=== PATIENT | female | born 1945 | race African-American/Black ===

== ENCOUNTER → 2016-12-24 | Day surgery (SDC) | payer MEDICARE, OTHER | LOC: RAD 12:23 | PROVIDERS: ATTEND Orthopaedic Surgery Adult Reconstructive Orthopaedic Surgery | PROC: 3E0U33Z Introduction of Anti-inflammatory into Joints, Percutaneous Approach (ICD-10-PCS; principal; 2016-12-24) | DX: M25.551 Pain in right hip (principal); Z96.641 Presence of right artificial hip joint; L02.91 Cutaneous abscess, unspecified | CPT/HCPCS: 20610; 36415; 73501; 77002; 85652; 86140; 87070; 87075; 87077; 87186; 87205 ==

== ENCOUNTER → 2016-12-24 | Outpatient (CLI) | payer MEDICARE, OTHER | LOC: OD 13:56 | PROVIDERS: ATTEND Orthopaedic Surgery Adult Reconstructive Orthopaedic Surgery | DX: L02.91 Cutaneous abscess, unspecified (principal); M25.551 Pain in right hip; Z96.641 Presence of right artificial hip joint | CPT/HCPCS: 36415; 85652; 86140 ==

== ENCOUNTER → 2017-08-27 | Outpatient (CLI) | payer MEDICARE, OTHER ==
[2017-08-27 12:02] LABS: ABSOLUTE BASOPHILS # (AUTO) 0.1 10^3/uL (0.0-0.2); ABSOLUTE EOSINOPHILS # (AUTO) 0.2 10^3/uL (0.0-0.6); ABSOLUTE LYMPHOCYTES (AUTO) 2.5 10^3/uL (0.5-4.7); ABSOLUTE MONOCYTES (AUTO) 0.5 10^3/uL (0.1-1.4); ABSOLUTE NEUT (AUTO) 4.2 10^3/uL (1.7-8.2); BASOPHILS % (AUTO) 1.1 % (0-2); EOSINOPHILS % (AUTO) 2.7 % (0-6); HEMATOCRIT 30.1 % (36.0-47.0); HEMOGLOBIN 9.6 g/dL (12.0-15.5); HGB HCT DIFFERENCE -1.3; LYMPHOCYTES % (AUTO) 33.7 % (13-45); MEAN CORPUSCULAR HEMOGLOBIN 27.2 pg (27.0-33.4); MEAN CORPUSCULAR HGB CONC 31.8 g/dL (32.0-36.0); MEAN CORPUSCULAR VOLUME 85 fl (80-97); MONOCYTES % (AUTO) 6.2 % (3-13); RED BLOOD COUNT 3.52 10^6/uL (3.72-5.28); SEGMENTED NEUTROPHILS % (AUTO) 56.3 % (42-78); WHITE BLOOD COUNT 7.4 10^3/uL (4.0-10.5)
[2017-08-27 12:46] LABS: ERYTHROCYTE SEDIMENTATION RATE 94 mm/hr (0-30)
== END ==
LOC: OD 10:49
PROVIDERS: ATTEND Physician Assistant
DX: M25.551 Pain in right hip (principal)
CPT/HCPCS: 36415; 85025; 85652; 86140

== ENCOUNTER → 2017-09-03 | Outpatient (CLI) | payer MEDICARE, OTHER ==
--- NOTE | 2017-09-03 15:44 | RADIOLOGY REPORT (SQ) ---
EXAM DESCRIPTION: NM 3 PHASE BONE SCAN COMPLETED DATE/TIME: 09/03/2017 2:59 pm REASON FOR STUDY: PRIMARY OA RIGHT HIP (M16.11) M16.11 UNILATERAL PRIMARY OSTEOARTHRITIS, RIGHT HIP COMPARISON: Outside x-rays dated 08/20/2017. RADIONUCLIDE AND DOSE: 21.9 millicuries Tc99m MDP. The route of agent administration: Intravenous. ADDITIONAL DRUGS AND DOSES: None. TECHNIQUE: Following injection of the radiopharmaceutical, serial blood flow images acquired. Equil ibrium blood pool images then acquired. Routine delayed images at 3 hour acquired of the areas of cl inical concern with additional focused images as needed. AREA OF INTEREST: Pelvis and hips. Attention right hip. LIMITATIONS: None. FINDINGS: VASCULAR FLOW IMAGES: No asymmetry or focal areas of hyperemia. BLOOD POOL IMAGES: No asymmetry or focal areas of soft-tissue hyper-perfusion. 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 Prominent activity in the trochanteric paulo on of the right hip as well as the right acetabulum. KIDNEYS: Kidneys not imaged. OTHER: No other significant finding. IMPRESSION: BILATERAL HIP PROSTHESES. PROMINENT ABNORMAL INCREASED ACTIVITY RELATED TO THE RIGHT HI P IN THE INTERTROCHANTERIC REGION AND ACETABULUM. THIS IS NONSPECIFIC AND MAY BE DUE TO LOOSENING OF THE PROSTHESIS. INFECTION IS ANOTHER POSSIBILITY. COMMENT: Quality measure 147: Current bone scan is compared with any available plain radiographs, p rior bone scans, and CT/MRI. TECHNICAL DOCUMENTATION: JOB ID: [id number] [employer]- All Rights Reserved
== END ==
LOC: RAD 10:58
PROVIDERS: ATTEND Physician Assistant
DX: M16.11 Unilateral primary osteoarthritis, right hip (principal); Z96.643 Presence of artificial hip joint, bilateral
CPT/HCPCS: 78315; A9561; Q9969

== ENCOUNTER → 2017-09-04 | Day surgery (SDC) | payer MEDICARE, OTHER ==
[2017-09-04 10:56] LABS: FLUID TYPE SYNOVIAL
[2017-09-04 10:57] LABS: FLUID APPEARANCE TURBID; FLUID RBC AVERAGE 179.5; FLUID RBC DILUENT USED SALINE; FLUID RBC DILUTION FACTOR 51; FLUID RBC SIDE 1 197; FLUID RBC SIDE 2 162; TOTAL RBC SQUARES COUNTED FLD 5
--- NOTE | 2017-09-04 11:25 | RADIOLOGY REPORT (SQ) ---
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 FLUOROSCOPY TIME: 14 seconds. 1 images saved to PACS. LIMITATIONS: None. PROCEDURE: SITE OF ASPIRATION: Right hip. Using local anesthesia and sterile technique with fluoroscopic guidance, the needle was advanced into the right hip joint, adjacent to the prosthesis. Approximately 1.5 mL of fluid was aspirated and se nt to the laboratory. IMPRESSION: DIAGNOSTIC ASPIRATION OF THE RIGHT HIP JOINT ABOVE. COMMENT: Patient medication list reviewed: Yes- Quality ID# [id number]:Eligible professional attests to doc umenting in the medical record they obtained, updated, or reviewed the patient's current medications. . Quality ID 145: Final reports for procedures using fluoroscopy that document radiation exposure jatin abdullahi, or exposure time and number of fluorographic images (if radiation exposure indices are not avail able) TECHNICAL DOCUMENTATION: JOB ID: [id number] [employer]- All Rights Reserved
== END ==
LOC: RAD 09:13
PROVIDERS: ATTEND Physician Assistant
PROC: 0S993ZX Drainage of Right Hip Joint, Percutaneous Approach, Diagnostic (ICD-10-PCS; principal; 2017-09-04)
DX: Z96.641 Presence of right artificial hip joint (principal); M25.551 Pain in right hip
CPT/HCPCS: 20610; 73501; 77002; 82945; 84157; 87070; 87075; 87077; 87186; 87205; 89050

== ENCOUNTER → 2018-12-22 | Outpatient (CLI) | payer MEDICARE ==
[2018-12-22 10:11] LABS: ABSOLUTE BASOPHILS # (AUTO) 0.1 10^3/uL (0.0-0.2); ABSOLUTE EOSINOPHILS # (AUTO) 0.2 10^3/uL (0.0-0.6); ABSOLUTE MONOCYTES (AUTO) 0.5 10^3/uL (0.1-1.4); BASOPHILS % (AUTO) 1.3 % (0-2); EOSINOPHILS % (AUTO) 2.9 % (0-6); HEMATOCRIT 34.5 % (36.0-47.0); HEMOGLOBIN 11.1 g/dL (12.0-15.5); LYMPHOCYTES % (AUTO) 29.6 % (13-45); MEAN CORPUSCULAR HEMOGLOBIN 27.7 pg (27.0-33.4); MEAN CORPUSCULAR HGB CONC 32.3 g/dL (32.0-36.0); MEAN CORPUSCULAR VOLUME 86 fl (80-97); MONOCYTES % (AUTO) 6.9 % (3-13); PLATELET COUNT 369 10^3/uL (150-450); RED BLOOD COUNT 4.03 10^6/uL (3.72-5.28); RED CELL DISTRIBUTION WIDTH 14.3 % (11.5-14.0); SEGMENTED NEUTROPHILS % (AUTO) 59.3 % (42-78); TOTAL CELLS COUNTED % (AUTO) 100 %; WHITE BLOOD COUNT 6.7 10^3/uL (4.0-10.5)
[2018-12-22 10:54] LABS: ERYTHROCYTE SEDIMENTATION RATE 87 mm/hr (0-30)
== END ==
LOC: OD 09:40
PROVIDERS: ATTEND Physician Assistant
DX: M25.551 Pain in right hip (principal); L02.91 Cutaneous abscess, unspecified; Z96.641 Presence of right artificial hip joint
CPT/HCPCS: 36415; 85025; 85652; 86140

== ENCOUNTER → 2018-12-25 | Day surgery (SDC) | payer MEDICARE ==
--- NOTE | 2018-12-25 15:51 | RADIOLOGY REPORT (SQ) ---
EXAM DESCRIPTION: NM 3 PHASE BONE SCAN COMPLETED DATE/TIME: 12/25/2018 3:07 pm REASON FOR STUDY: M25.551 PAIN IN RIGHT HIP M25.551 PAIN IN RIGHT HIP M17.12 UNILATERAL PRIMARY OS TEOARTHRITIS, LEFT KNEE COMPARISON: Outside plain films right hip 12/16/2018 RADIONUCLIDE AND DOSE: 19.1 millicuries Tc99m MDP. The route of agent administration: Intravenous. ADDITIONAL DRUGS AND DOSES: None. TECHNIQUE: Following injection of the radiopharmaceutical, serial blood flow images acquired. Equil ibrium blood pool images then acquired. Routine delayed images at 3 hours acquired of the areas of c linical concern with additional focused images as needed. AREA OF INTEREST: Right hip LIMITATIONS: None. FINDINGS: VASCULAR FLOW IMAGES: No asymmetry or focal areas of hyperemia. BLOOD POOL IMAGES: Asymmetrically increased soft tissue profusion is seen over the right hip BONES: Increased accumulation of HDP is present along the right acetabulum and right proximal femur a re along the greater and lesser trochanters and femoral neck. This correlates with bony overgrowth o n accompanying plain films. There is lucency between the acetabular prosthesis and bony pelvis. Het erotopic bone along the greater and lesser trochanter. Findings are worrisome for infection OTHER: No other significant finding. IMPRESSION: Abnormal bone scan, increased uptake on blood pool and delayed images along [place] bone adjacent to a right hip prosthesis. Findings are worrisome for infection. COMMENT: Results called to Dr. Al in the OR, 1500 hours 12/25/2018. Quality measure 147: Current bone scan is compared with any available plain radiographs, prior bone scans, and CT/MRI. TECHNICAL DOCUMENTATION: JOB ID: [id number] [employer]- All Rights Reserved Reading location - IP/workstation name: [email or web address]-RR
--- NOTE | 2018-12-25 16:43 | RADIOLOGY REPORT (SQ) ---
EXAM DESCRIPTION: INJECT/ASPIR HIP/SHLDR/KNEE; FLUORO/NEEDLE PLACEMENT COMPLETED DATE/TIME: 12/25/2018 4:14 pm REASON FOR STUDY: PAIN IN RIGHT HIP M25.551 PAIN IN RIGHT HIP M17.12 UNILATERAL PRIMARY OSTEOARTHR ITIS, LEFT KNEE COMPARISON: Bone scan 12/25/2018 Outside plain films 12/16/2018 Right hip joint aspiration 09/04/2017 FLUOROSCOPY TIME: 60 seconds 1 digital radiographic image saved to PACS. LIMITATIONS: None. PROCEDURE: Using local anesthesia and sterile technique with fluoroscopic guidance, a 20 gauge spina l needle was advanced into the joint. Aspiration of the needle yielded no fluid initially. Needle w as manipulated, about 1.5 mL of fluid was aspirated from the right hip joint space targeted at the fe moral head-neck junction at the prosthesis. The needle was removed. There were no immediate complic ations. Gram stain cultures and sensitivities pending on the fluid. IMPRESSION: FLUOROSCOPIC GUIDED RIGHT HIP JOINT ASPIRATION ABOVE. GRAM STAIN CULTURE AND SENSITIVITY ON THE ASPIRATED FLUID IS PENDING. COMMENT: Patient medication list reviewed: Yes- Quality ID# [id number]:Eligible professional attests to doc umenting in the medical record they obtained, updated, or reviewed the patient's current medications. . Quality ID 145: Final reports for procedures using fluoroscopy that document radiation exposure jatin abdullahi, or exposure time and number of fluorographic images (if radiation exposure indices are not avail able) TECHNICAL DOCUMENTATION: JOB ID: [id number] [employer]- All Rights Reserved Reading location - IP/workstation name: [email or web address]
== END ==
LOC: EDSTATUS 11:30 → RAD 13:02
PROVIDERS: ATTEND Physician Assistant
DX: M25.551 Pain in right hip (principal); M17.12 Unilateral primary osteoarthritis, left knee
CPT/HCPCS: 87205; 87070; 87075; 87077; 87186; 20610; 77002; 78315; A9561; Q9969

== ENCOUNTER → 2018-12-26 | Day surgery (SDC) | payer MEDICARE ==
[~2018-12-26] MED LIST: BUPIVACAINE HCL 0.5 % INJ/PF 30 ML SDV ONE; LIDOCAINE 1% INJ-PF (10 MG/ML) 30 ML SDV ONE; METHYLPREDNISOLONE ACETATE INJ 80 MG/1 ML VIAL ONE
== END ==
LOC: RAD 13:30
PROVIDERS: ATTEND Physician Assistant
DX: M17.12 Unilateral primary osteoarthritis, left knee (principal); R69 Illness, unspecified
CPT/HCPCS: J1040; J3490

== ENCOUNTER 2018-12-30 08:35 | Day surgery (SDC) | payer MEDICARE, OTHER ==
[~2018-12-30 08:35] MED LIST changes: -BUPIVACAINE HCL 0.5 % INJ/PF 30 ML SDV ONE; +KETOROLAC TROMETHAMINE 0.45% 4 DROP/0.4 ML DROPERETTE OD PRN; -LIDOCAINE 1% INJ-PF (10 MG/ML) 30 ML SDV ONE; -METHYLPREDNISOLONE ACETATE INJ 80 MG/1 ML VIAL ONE
[2018-12-30] MEDS: TROPICAMIDE 1% OPH SOLN 3 ML OD PRN ×3 (08:55→09:17)
[2018-12-30] MEDS: CYCLOPENTOLATE 0.2%/PHENYLEPHRINE 1% OPH SOLN 2 ML OD PRN ×3 (08:55→09:17)
[2018-12-30] MEDS: BESIFLOXACIN HCL 0.6% OPH SUSP 5 ML BOTTLE OD PRN ×4 (08:56→09:58)
[2018-12-30] MEDS: TETRACAINE HCL 0.5% OPH SOLN 0.6 ML DROPERETTE OD PRN ×4 (08:57→09:24)
[2018-12-30] MEDS ORDERED: MIDAZOLAM 2 MG/2 ML INJ ONE (08:59)
[2018-12-30] MEDS ORDERED: FENTANYL CITRATE INJ/PF 100 MCG/2 ML AMPUL ONE (09:00)
[2018-12-30] MEDS: LIDOCAINE 4% INJ/PF (40 MG/ML) 5 ML AMPUL OD PRN ×2 (09:30)
[2018-12-30] MEDS: BUPIVACAINE HCL 0.75% INJ/PF (7.5 MG/1 ML) 10 ML SDV OD PRN ×2 (09:30)
[2018-12-30] MEDS: CHONDR SU A NA/HYALUR INTRAOC KIT (SURGICARE) ONE ×2 (09:42)
[2018-12-30] MEDS: LIDOCAINE 1% INJ-PF (10 MG/ML) 30 ML SDV ONE ×2 (09:42)
[2018-12-30] MEDS: EPINEPHRINE INJ/PF 1 MG/1 ML AMPULE ONE ×2 (09:42)
[2018-12-30] MEDS: DORZOLAMIDE HCL 2%/TIMOLOL MALEAT 0.5% OPH SOLN 10 ML OD PRN ×2 (09:58)
--- NOTE | 2018-12-30 10:14 | [facility] DISCHARGE SUMMARY E ---
[facility] Discharge Summary NAME: ONEL CHRISTOPHER AGE: 73Y ADMITTED: 12/30/2018 DISCHARGED: 12/30/2018 FINAL DIAGNOSIS: Cataract, right eye. HOSPITAL COURSE: The patient is a 73-year-old lady who underwent uneventful cataract extraction with intraocular lens implant, right eye, on 12/30/2018. She will be discharged to home. She was instructed to resume preoperative medications; to take Tylenol as needed for discomfort; to keep her eye shielded; to use Pred Forte, Prolensa, and Vigamox at 3 p.m. and 8 p.m.; and to follow up in my office in 1 day. DICTATING PHYSICIAN: MAC MANLEY M.D. [id number] PHY#: [id number] ID: [id number] JOB#: [id number] ACCT: [id number] cc:MAC MANLEY M.D. >
--- NOTE | 2018-12-30 10:14 | [facility] OPERATIVE REPORT E ---
[facility] Operative Report NAME: ONEL CHRISTOPHER AGE: 73Y DATE OF SURGERY: 12/30/2018 ROOM: PREOPERATIVE DIAGNOSIS: Cataract, right eye. POSTOPERATIVE DIAGNOSIS: Cataract, right eye. PROCEDURE PERFORMED: Phacoemulsification with posterior chamber intraocular lens, right eye. SURGEON: MAC MANLEY M.D. ANESTHESIA: Topical with MAC. INDICATIONS FOR SURGERY: Difficulty driving at night. PROCEDURE: The patient was brought to the operating room and placed on the operative table. Following tetracaine drops, topical anesthesia was administered. This consisted of instrument wipe pledgets soaked in a solution of 4% Xylocaine mixed with 0.75% Marcaine in a 1:2 ratio. A 2 x 1 cm pledget was placed in the superior fornix. A 1 x 1 cm pledget was placed in the inferior fornix. The eye was patched shut for 5 minutes. The patch was removed. The eye was sterilely prepped and draped in the usual manner. Lid speculum was placed in the eye. The pledgets were removed and 4-0 black silk sutures were placed around the superior and the inferior rectus muscles to be used as traction. A conjunctival peritomy was made at the 10 o'clock position. Hemostasis was obtained with bipolar cautery. A posterior limbal groove was created using a crescent knife and dissected anteriorly towards the cornea. A sharp point blade was used to create a paracentesis site at the 2 o'clock position. A 2.4 mm keratome was used to enter the anterior chamber through the groove. Viscoelastic was injected into the anterior chamber. An anterior capsulotomy was performed using Utrata forceps in a capsulorrhexis fashion. Hydrodissection and hydrodelineation were performed. Phacoemulsification was performed in [id number] technique. Total phaco time was 5.55 CDE. Following this, the I/A unit was used to remove residual cortex. Viscoelastic was injected into the capsular bag. Intraocular lens model [id number], 23.0 diopters, serial number [id number], was placed in the capsular bag. The I/A unit was used to remove residual viscoelastic. The wound was seen to be watertight under high and low pressure, and no sutures were placed. The intraocular lens was well centered. The pressure was adjusted in the eye to normal pressure. The 4-0 black silk sutures and lid speculum were removed. The eye was shielded after Besivance drops were placed. The patient tolerated the procedure well and was sent to the recovery room in good condition. A drop of Cosopt was placed in the eye at the end of surgery. DICTATING PHYSICIAN: MAC MANLEY M.D. [id number] PHY#: [id number] ID: [id number] JOB#: [id number] ACCT: [id number] cc:MAC MANLEY M.D. >
== END 2018-12-30 10:46 | disposition home or self-care (01) ==
LOC: SC 08:35
PROVIDERS: ATTEND Ophthalmology
DX: H25.813 Combined forms of age-related cataract, bilateral (principal); H04.123 Dry eye syndrome of bilateral lacrimal glands; E11.9 Type 2 diabetes mellitus without complications; H17.89 Other corneal scars and opacities; I10 Essential (primary) hypertension; E78.00 Pure hypercholesterolemia, unspecified; Z88.8 Allergy status to other drugs, medicaments and biological substances; Z79.84 Long term (current) use of oral hypoglycemic drugs; Z79.899 Other long term (current) drug therapy
CPT/HCPCS: 66984; 82962; V2632; J2250; J3490 ×4; A9270; J0171; J3010; 142